=== PATIENT | male | born 1940 | race Caucasian/White ===

== ENCOUNTER 2018-12-26 06:11 | Emergency (ER) | payer MEDICARE, OTHER ==
[~2018-12-26] VITALS: Ht 152.4 cm; Wt 64.0 kg
[~2018-12-26 06:11] MED LIST: CALCIUM; MAGNESIUM
[2018-12-26 06:15] VITALS: BP 133/63; PULSE 72; RESP 18; Ht 152.4 cm; Wt 64.0 kg
[2018-12-26] MEDS ORDERED: ALBU18HF INHALATION (06:41)
[2018-12-26] MEDS ORDERED: ACET500C5 PO (06:41)
[2018-12-26] MEDS ORDERED: BENZ-6 PO (06:41)
[2018-12-26] MEDS ORDERED: AZIT250T PO (06:41)
--- NOTE | 2018-12-26 07:13 | ERD ---
ER Documentation Chief Complaint Chief Complaint cough/sore throat/headache x 1 week HPI 78-year-old male patient with no significant past medical history presents to the ED complaining of dry cough, sore throat that started intermittently for 1 week. Patient has been taking NyQuil with slight relief. Reports that he also has a slight headache and body aches. Denies any fever, chills, nausea, vomiting, diarrhea, neck stiffness, chest pain, shortness of breath, dyspnea on exertion, leg swelling, abdominal pain. Reports that his nephew is also sick with similar symptoms. ROS All systems reviewed and are negative except as per history of present illness. Medications Home Meds Active Scripts Albuterol Sulfate* (Ventolin HFA*) 18 Gm Hfa.aer.ad, 2 PUFF INHALATION Q4H, #1 INHALER Prov:ADALBERTO VELÁZQUEZ-Frances 12/26/18 Acetaminophen* (Tylophen*) 500 Mg Capsule, 1 CAP PO Q6H PRN for PAIN AND OR ELEVATED TEMP, #20 CAP Prov:ADALBERTO VELÁZQUEZ-C 12/26/18 Benzonatate* (Tessalon Perle*) 100 Mg Capsule, 100 MG PO Q8H PRN for COUGH, #20 CAP Prov:ADALBERTO VELÁZQUEZ-C 12/26/18 Azithromycin* (Zithromax*) 250 Mg Tablet, 250 MG PO .ZPACK DIRECTED, #6 TAB TAKE 500 MG (2 TABS) THE FIRST DAY THEN 250 MG (1 TAB) DAYS 2-5 Prov:ADALBERTO VELÁZQUEZ-C 12/26/18 Reported Medications Magnesium 02/12/10 Calcium 02/12/10 Allergies Allergies: Coded Allergies: No Known Drug Allergy (Verified Allergy, Mild, 02/12/10) PMhx/Soc History of Surgery: Yes (RT KNEE SURG 20 YRS AGO) Hx Neurological Disorder: No Hx Respiratory Disorders: No Hx Cardiac Disorders: No Hx Miscellaneous Medical Probl: No Hx Alcohol Use: No Hx Substance Use: No Hx Tobacco Use: No FmHx Family History: No diabetes, No coronary disease Physical Exam Vitals Vital Signs Date Temp Pulse Resp B/P (MAP) Pulse Ox O2 O2 Flow FiO2 Time Delivery Rate 12/26/18 97.2 72 18 133/63 100 06:15 (86) Physical Exam Const: [id number]-xhd-[id number], well-nourished. In no acute distress. Head: Atraumatic, normocephalic Eyes: Normal Conjunctiva without injection. No purulent discharge. PERRL. EOMI ENT: Normal external ear. Ear canal without erythema. Tympanic membrane pearly ramirez without effusion or bulging. Nasal canal clear with normal turbinates. Moist oropharynx without tonsillar exudates. Non-erythematous pharynx. Uvula midline. No drooling. No trismus. Neck: Full range of motion. No meningismus. No cervical lymphadenopathy. Resp: Clear to auscultation bilaterally. No wheezing, rhonchi, rales, or crackles. No accessory muscle use. No retractions. Cardio: Regular rate and rhythm. No murmurs, rubs or gallops. Abd: Soft, non tender, non distended. Normal bowel sounds. No palpable masses. No rebound tenderness. No guarding. Skin: No petechiae or rashes Back: No midline tenderness. No CVA tenderness. Ext: No cyanosis, or edema. Neur: Awake and alert. Psych: Normal Mood and Affect Procedures/MDM 78-year-old male patient with no sniffing past medical history presents to ED complaining of cough, sore throat, headache that started 1 week ago. Patient is afebrile and nontoxic-appearing. This patient presents to the ED with symptoms consistent with bronchitis versus influenza-like symptoms. Patient will be treated in case for bacterial etiology for his bronchitis. Patient is afebrile and has normal vital signs. Patient's physical exam include lungs which were clear to auscultation and a normal pulse oximetry. There is a low suspicion for a croup, pneumonia, pneumothorax, strep pharyngitis, otitis media, otitis externa, sinusitis, peritonsillar abscess, foreign body aspiration, mastoiditis, retropharyngeal abscess, epiglottitis, meningitis, sepsis or other emergent conditions. Diagnosis: Cough, Sore throat Discharge medications: Ventolin, Tylenol, Tessalon Perles, Zithromax Follow up with primary care physician in 1-2 days. Instructed patient to return to the ED sooner for any worsening symptoms. Patient's questions were answered. Patient is hemodynamically stable. Patient understood and agreed with discharge plan. Patient discharged stable. Disclaimer: Inadvertent spelling and grammatical errors are likely due to EHR/dictation software use and do not reflect on the overall quality of patient care. Also, please note that the electronic time recorded on this note does not necessarily reflect the actual time of the patient encounter. Departure Diagnosis: Primary Impression: Cough Additional Impression: Sore throat Condition: Stable Patient Instructions: Bronchitis, Antiobiotic Treatment (Adult) Referrals: [facility] YOU HAVE RECEIVED A MEDICAL SCREENING EXAM AND THE RESULTS INDICATE THAT YOU DO NOT HAVE A CONDITION THAT REQUIRES URGENT TREATMENT IN THE EMERGENCY DEPARTMENT. FURTHER EVALUATION AND TREATMENT OF YOUR CONDITION CAN WAIT UNTIL YOU ARE SEEN IN YOUR DOCTORS OFFICE WITHIN THE NEXT 1-2 DAYS. IT IS YOUR RESPONSIBILITY TO MAKE AN APPOINTMENT FOR FOLOW-UP CARE. IF YOU HAVE A PRIMARY DOCTOR --you should call your primary doctor and schedule an appointment IF YOU DO NOT HAVE A PRIMARY DOCTOR YOU CAN CALL OUR PHYSICIAN REFERRAL HOTLINE AT IF YOU CAN NOT AFFORD TO SEE A PHYSICIAN YOU CAN CHOSE FROM THE FOLLOWING [facility] [address] [facility] [address] [facility] [address] [facility] [address] [facility] [address] [facility]. [facility]. [address] [facility]. [facility] YOU HAVE RECEIVED A MEDICAL SCREENING EXAM AND THE RESULTS INDICATE THAT YOU DO NOT HAVE A CONDITION THAT REQUIRES URGENT TREATMENT IN THE EMERGENCY DEPARTMENT. FURTHER EVALUATION AND TREATMENT OF YOUR CONDITION CAN WAIT UNTIL YOU ARE SEEN IN YOUR DOCTORS OFFICE WITHIN THE NEXT 1-2 DAYS. IT IS YOUR RESPONSIBILITY TO MAKE AN APPOINTMENT FOR FOLOW-UP CARE. IF YOU HAVE A PRIMARY DOCTOR --you should call your primary doctor and schedule and appointment IF YOU DO NOT HAVE A PRIMARY DOCTOR YOU CAN CALL OUR PHYSICIAN REFERRAL HOTLINE AT . IF YOU CAN NOT AFFORD TO SEE A PHYSICIAN YOU CAN CHOSE FROM THE FOLLOWING [facility]: [facility] [address] [place] [address] [facility] [address] [place] [address] [facility] + [facility] [address] [place] [address] [facility] URGENT CARE/SPECIALTIES Additional Instructions: Llame al doctor MAANA y jan neville RADHA PARA DENTRO DE 2-3 POLLOCK.Dgale a la secretaria que nosotros le instruimos hacer esta radha.Avise o llame si hawkins condicin se empeora antes de la radha. Regresa aqui si peor o no mejor. ADALBERTO VELÁZQUEZ PA-C Dec 26, 2018 07:13
== END 2018-12-26 07:14 | disposition home or self-care (01) ==
LOC: FTE 06:11
DX: J02.9 Acute pharyngitis, unspecified (principal)
CPT/HCPCS: 99283